=== PATIENT | male | born 1995 | race Caucasian/White ===

== ENCOUNTER 2017-06-19 15:35 | Emergency (ER) | payer MEDICAID ==
--- NOTE | 2017-06-19 17:26 | ER Document Report ---
ED General - General Chief Complaint: Wrist Pain Stated Complaint: POSSIBLE ANXIETY/HAND PAIN Time Seen by Provider: 06/19/17 17:07 Mode of Arrival: Ambulatory Information source: Patient Notes: 22-year-old male presents to ED for pain in both wrists for the last 6 months that is getting progressively worse over time. He states he injured his wrist previously but never went and got evaluated. Now the pain is getting worse. He is also come in today for several episodes of stomach cramping chest pain with difficulty breathing hard to take along deep breath and happens usually under stress. He also is thirsty all the time with frequent urination and dark urine the last 2-3 weeks. States he drinks water and Gatorade all day as he is out in the sun. States he has had several episodes where his come home and been very sleepy and not able to get up and move around and his mother has a history of diabetes and she had similar symptoms before she was diagnosed. TRAVEL OUTSIDE OF THE [place] IN LAST 30 DAYS: No - HPI Onset: Other - Wrist pain for 6 months stomach cramping chest pain and shortness of breath and distress for 2-3 days 3 episodes Onset/Duration: Intermittent Quality of pain: Cramping - Cramping in his abdomen 3 times over the last 2-3 days along with the chest pressure, Pressure - States his chest feels tight and pressure 3 times over the last 2-3 days none at this moment, Sharp - Wrist, Throbbing - Wrist Associated symptoms: Chest pain - 3 times over the last 2-3 days none at this moment, Other - Abdominal cramping shortness of breath 3 times over the last 2- 3 days dark urine increased thirst for the last 2-3 weeks Exacerbated by: Other - Stress causes his chest pain stomach pain and shortness of breath Relieved by: Denies Similar symptoms previously: Yes Recently seen / treated by doctor: No Past Medical History - General Information source: Patient - Social History Smoking Status: Current Every Day Smoker Cigarette use (# per day): Yes - 1/2-1 pack per day Chew tobacco use (# tins/day): No Smoking Education Provided: Yes - Less than 2 minutes Frequency of alcohol use: Rare Drug Abuse: Marijuana 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 Lives with: Family Family History: DM Patient has suicidal ideation: No Patient has homicidal ideation: No - Past Medical History Cardiac Medical History: Reports: None Pulmonary Medical History: Reports: None EENT Medical History: Reports: None Neurological Medical History: Reports: None Endocrine Medical History: Reports: None Renal/ Medical History: Reports: None Malignancy Medical History: Reports None GI Medical History: Reports: None Musculoskeltal Medical History: Reports Hx Musculoskeletal Trauma Skin Medical History: Reports None Psychiatric Medical History: Reports: Hx Attention Deficit Hyperactivity Disorder Traumatic Medical History: Reports: None Infectious Medical History: Reports: None Surgical Hx: Negative - Immunizations Hx Diphtheria, Pertussis, Tetanus Vaccination: Yes Review of Systems - Review of Systems Constitutional: No symptoms reported EENT: No symptoms reported Cardiovascular: Chest pain - 3 times over the last 2-3 days none at this moment Respiratory: Short of breath - 3 times over the last 2-3 days Gastrointestinal: Abdominal pain - 3 times over the last 2-3 days Genitourinary: Frequency, Other - dark. denies: Burning Male Genitourinary: No symptoms reported Musculoskeletal: Other - bilateral hand pain Skin: No symptoms reported Hematologic/Lymphatic: No symptoms reported Neurological/Psychological: No symptoms reported -: Yes All other systems reviewed and negative Physical Exam - Vital signs Vitals: Temp Pulse Resp BP Pulse Ox 97.8 F 70 18 141/65 H 98 06/19/17 15:59 06/19/17 15:59 06/19/17 15:59 06/19/17 15:59 06/19/17 15:59 Interpretation: Normal - General General appearance: Appears well, Alert - HEENT Head: Normocephalic, Atraumatic Eyes: Normal Pupils: PERRL - Respiratory Respiratory status: No respiratory distress Chest status: Nontender Breath sounds: Normal Chest palpation: Normal - Cardiovascular Rhythm: Regular Heart sounds: Normal auscultation Murmur: No - Abdominal Inspection: Normal Distension: No distension Bowel sounds: Normal Tenderness: Nontender Organomegaly: No organomegaly - Back Back: Normal, Nontender - Extremities General upper extremity: Normal inspection, Normal color, Normal ROM, Normal temperature General lower extremity: Normal inspection, Nontender, Normal color, Normal ROM , Normal temperature, Normal weight bearing. No: Luiz's sign - Neurological Neuro grossly intact: Yes Cognition: Normal Orientation: AAOx4 Eva Coma Scale Eye Opening: Spontaneous Bard Coma Scale Verbal: Oriented Eva Coma Scale Motor: Obeys Commands Eva Coma Scale Total: 15 Speech: Normal Motor strength normal: LUE, RUE, LLE, RLE Sensory: Normal - Psychological Associated symptoms: Normal affect, Normal mood - Skin Skin Temperature: Warm Skin Moisture: Dry Skin Color: Normal Course - Re-evaluation Re-evalutation: 06/19/17 18:59 Discussed both x-rays with and labs with patient. Will put cockup splints on both wrists due to his wrist pain. Patient will follow up with mental health and orthopedics for his anxiety and wrist pain. - Vital Signs Vital signs: Temp Pulse Resp BP Pulse Ox 98.8 F 60 16 132/80 H 99 06/19/17 19:15 06/19/17 19:15 06/19/17 19:15 06/19/17 19:15 06/19/17 19:15 - Laboratory Result Diagrams: 06/19/17 17:31 06/19/17 17:31 Laboratory results interpreted by me: 06/19/17 06/19/17 17:31 17:50 Glucose 71 L Urine Protein 30 H Urine Urobilinogen 4.0 H - Diagnostic Test Radiology reviewed: Image reviewed, Reports reviewed Procedures - Immobilization Left Wrist Immobilizer type: Cock-up Performed by: PCT Post-Proc Neuro Vasc Exam: Normal Alignment checked and good: Yes Right Wrist Immobilizer type: Cock-up Performed by: PCT Post-Proc Neuro Vasc Exam: Normal Alignment checked and good: Yes Discharge - Discharge Clinical Impression: Chronic pain of both wrists, Anxiety Condition: Stable Disposition: HOME, SELF-CARE Additional Instructions: You were seen today for several episodes of chest pain with abdominal cramping over the last 3 days. You stated when you have these episodes you have very short of breath and your chest feels tight. He states these episodes happen when you are under a lot of stress. And that you have been under a lot of stress lately he will need to follow-up with one of the mental offices on the list you received to help you with this discomfort. Anxiety The physician feels that some of your health problems are being caused by anxiety. Anxiety affects your health in many ways. Anxiety alone can cause palpitations, sweats, chest pains, abdominal pains, shortness of breath, and headaches. It contributes to ulcer disease, high blood pressure, irritable bowel syndrome, and has been shown to cause flare-ups of many other diseases. Anxiety is not a simple disorder to treat. If the anxiety is due to recent life stresses, you may simply need time to "work through" the changes. If the anxiety is due to an underlying unhappiness with yourself or due to psychiatric disturbance, professional help will be needed. Your physician can refer you for further help if needed. Anti-anxiety medication is occasionally given if the stress is acute or if you are having trouble sleeping. Chronic or frequent use of these medications is not a good idea because the body becomes reliant on it, preventing you from dealing with life's normal stresses. You will need to follow-up with 1 of the mental health office is that I gave you for your anxiety. He was seen today for chronic pain to both wrist. He states that that started about 6 months ago but is getting progressively worse. Your x-rays were negative. You will need to follow-up with orthopedics for further evaluation of your wrist pain. I have given you cockup splints which usually will help you to rest your wrist until he can get evaluated by orthopedics. Ibuprofen should help your pain as well as the cock-up splint until you can follow-up with orthopedics. FOLLOW-UP CARE: If you have been referred to a physician for follow-up care, call the physician s office for an appointment as you were instructed or within the next two days. If you experience worsening or a significant change in your symptoms, notify the physician immediately or return to the Emergency Department at any time for re-evaluation. Forms: Elevated Blood Pressure, Smoking Cessation Education, Return to Work Referrals: GALE PALACIOS MD [ACTIVE STAFF] - Follow up as needed
[2017-06-19 17:41] LABS: ABSOLUTE EOSINOPHILS # (AUTO) 0.4 10^3/uL (0.0-0.6); ABSOLUTE LYMPHOCYTES (AUTO) 2.2 10^3/uL (0.5-4.7); ABSOLUTE MONOCYTES (AUTO) 0.6 10^3/uL (0.1-1.4); ABSOLUTE NEUT (AUTO) 6.3 10^3/uL (1.7-8.2); BASOPHILS % (AUTO) 0.1 % (0-2); EOSINOPHILS % (AUTO) 3.8 % (0-6); HEMATOCRIT 46.5 % (37.9-51.0); HEMOGLOBIN 16.4 g/dL (13.5-17.0); HGB HCT DIFFERENCE 2.7; LYMPHOCYTES % (AUTO) 23.4 % (13-45); MEAN CORPUSCULAR HEMOGLOBIN 32.1 pg (27.0-33.4); MEAN CORPUSCULAR HGB CONC 35.3 g/dL (32.0-36.0); MEAN CORPUSCULAR VOLUME 91 fl (80-97); MONOCYTES % (AUTO) 5.9 % (3-13); RED BLOOD COUNT 5.11 10^6/uL (4.35-5.55); RED CELL DISTRIBUTION WIDTH 12.4 % (11.5-14.0); SEGMENTED NEUTROPHILS % (AUTO) 66.8 % (42-78); WHITE BLOOD COUNT 9.5 10^3/uL (4.0-10.5)
[2017-06-19 17:59] LABS: ALANINE AMINOTRANSFERASE 61 U/L (21-72); ALBUMIN 4.4 g/dL (3.5-5.0); ALKALINE PHOSPHATASE 76 U/L (38-126); ANION GAP 9 (5-19); ASPARTATE AMINO TRANSFERASE 34 U/L (17-59); BILIRUBIN,DIRECT 0.3 mg/dL (0.0-0.4); BILIRUBIN,TOTAL 0.6 mg/dL (0.2-1.3); BLOOD UREA NITROGEN 12 mg/dL (7-20); CALCIUM 9.7 mg/dL (8.4-10.2); CARBON DIOXIDE 29 mmol/L (22-30); CHLORIDE 104 mmol/L (98-107); CREATININE RESULT 0.86 mg/dL (0.52-1.25); GLUCOSE 71 mg/dL (75-110); LIPASE 91.5 U/L (23-300); POTASSIUM 4.1 mmol/L (3.6-5.0); SODIUM 141.5 mmol/L (137-145)
[2017-06-19 18:21] LABS: AMORPHOUS SEDIMENT,URINE TRACE /HPF; APPEARANCE,URINE CLOUDY; BILIRUBIN,URINE NEGATIVE (NEGATIVE); GLUCOSE, URINE NEGATIVE (NEGATIVE); KETONES,URINE NEGATIVE (NEGATIVE); LEUKOCYTE ESTERASE,URINE NEGATIVE (NEGATIVE); NITRITE,URINE NEGATIVE (NEGATIVE); PROTEIN,URINE 30 mg/dL (NEGATIVE); URINE SPECIFIC GRAVITY 1.021
--- NOTE | 2017-06-19 18:26 | RADIOLOGY REPORT (SQ) ---
EXAM DESCRIPTION: WRIST BILATERAL 3 VIEWS COMPLETED DATE/TIME: 06/19/2017 5:48 pm REASON FOR STUDY: increasing pain to both wrist COMPARISON: None. NUMBER OF VIEWS: Three views. TECHNIQUE: AP, lateral, and oblique radiographic images acquired of the right and left wrist. LIMITATIONS: None. FINDINGS: MINERALIZATION: Normal. BONES: No acute fracture or dislocation. No worrisome bone lesions. Normal alignment. SOFT TISSUES: No soft tissue swelling. No foreign body. OTHER: No other significant finding. IMPRESSION: No significant abnormalities involving the wrists. TECHNICAL DOCUMENTATION: JOB ID: [id number] [employer]- All Rights Reserved
[2017-06-19 19:18] VITALS: BP 132/80
== END 2017-06-19 19:20 | disposition home or self-care (01) ==
LOC: ER 15:35
DX: M25.532 Pain in left wrist (principal); M25.531 Pain in right wrist; G89.29 Other chronic pain; F41.9 Anxiety disorder, unspecified; R10.9 Unspecified abdominal pain; R07.9 Chest pain, unspecified; F17.210 Nicotine dependence, cigarettes, uncomplicated
CPT/HCPCS: 99284; 36415; 82550; 83690; 85025; 80053; 81001; 73110; L3908 ×2

== ENCOUNTER 2019-04-15 05:01 | Emergency (ER) | payer SELFPAY ==
[2019-04-15] MEDS ORDERED: LIDOCAINE 1%/EPINEPHRINE INJ 20 ML VIAL INJ ONE (08:44)
[2019-04-15] MEDS ORDERED: HYDROCODONE/ACETAMINOPHEN 5-325 MG (6 TAB/ER DISP) PO PRN (09:29)
[2019-04-15] MEDS ORDERED: SULFAMETHOXAZOLE/TRIMETHOPRIM 800-160 MG TABLET PO ONE (09:29)
[2019-04-15] MEDS ORDERED: CEPHALEXIN 500 MG CAPSULE PO ONE (09:29)
--- NOTE | 2019-04-15 09:35 | ER Document Report ---
ED Skin Rash/Insect Bite/Abscs - General Chief Complaint: Abscess Stated Complaint: POSS INSECT BITE Time Seen by Provider: 04/15/19 08:08 Notes: Patient is a 24-year-old male presents to the emergency department with a chief complaint of right arm abscess. Patient states that 3 days ago he noticed a small pimple to the right mid forearm. Patient states that since then it has become extremely tender to touch and the redness has increased. Patient denies fever or chills. Patient states he did have a left elbow abscess in the past and was told there was an infection but is unsure if he had MRSA or staph. Patient denies nausea vomiting or diarrhea patient denies numbness or tingling to the hand distal to the injury. TRAVEL OUTSIDE OF THE [place] IN LAST 30 DAYS: No - Related Data Allergies/Adverse Reactions: No Known Allergies Allergy (Verified 04/15/19 05:05) Past Medical History - General Information source: Patient - Social History Smoking Status: Never Smoker Chew tobacco use (# tins/day): No Frequency of alcohol use: None Drug Abuse: None Lives with: Family Family History: DM Patient has suicidal ideation: No Patient has homicidal ideation: No - Past Medical History Cardiac Medical History: Reports: None Pulmonary Medical History: Reports: None EENT Medical History: Reports: None Neurological Medical History: Reports: None Endocrine Medical History: Reports: None Renal/ Medical History: Reports: None. Denies: Hx Peritoneal Dialysis Malignancy Medical History: Reports None GI Medical History: Reports: None Musculoskeletal Medical History: Reports Hx Musculoskeletal Trauma Skin Medical History: Reports None Psychiatric Medical History: Reports: Hx Attention Deficit Hyperactivity Disorder Traumatic Medical History: Reports: None Infectious Medical History: Reports: None Surgical Hx: Negative - Immunizations Hx Diphtheria, Pertussis, Tetanus Vaccination: Yes Review of Systems - Review of Systems Constitutional: No symptoms reported EENT: No symptoms reported Cardiovascular: No symptoms reported Respiratory: No symptoms reported Gastrointestinal: No symptoms reported Genitourinary: No symptoms reported Male Genitourinary: No symptoms reported Musculoskeletal: No symptoms reported Skin: See HPI Hematologic/Lymphatic: No symptoms reported Neurological/Psychological: No symptoms reported Physical Exam - Vital signs Vitals: Temp Pulse Resp BP Pulse Ox 98.6 F 92 18 151/76 H 100 04/15/19 05:06 04/15/19 05:06 04/15/19 05:06 04/15/19 05:06 04/15/19 05:06 Interpretation: Hypertensive - Notes Notes: GENERAL: Well-appearing, well-nourished and in no acute distress. HEAD: Atraumatic, normocephalic. EYES: Pupils equal round and reactive to light, extraocular movements intact, sclera anicteric, conjunctiva are normal. ENT: TMs normal, nares patent, oropharynx clear without exudates. Moist mucous membranes. NECK: Normal range of motion, supple without lymphadenopathy or JVD. LUNGS: Breath sounds clear to auscultation bilaterally and equal. No wheezes rales or rhonchi. HEART: Regular rate and rhythm without murmurs, rubs or gallops. ABDOMEN: Soft, nontender, normoactive bowel sounds. No guarding, no rebound. No masses appreciated. BACK: No cervical, thoracic, lumbar midline tenderness. No saddle anesthesia, normal distal neurovascular exam. GENITOURINARY: Deferred. EXTREMITIES: Normal range of motion, no pitting or edema. No clubbing or cyanosis. NEUROLOGICAL: Cranial nerves II through XII grossly intact. Normal speech, normal gait. PSYCH: Normal mood, normal affect. SKIN: Warm, Dry, 3 x 2 cm area to the right mid forearm that is indurated and firm. If there is a surrounding cellulitis noted to the area. There is no drainage. Center of the wound has a white head. Patient is able to make a fist with his right hand, the okay sign, thumbs up without difficulty. Patient does have a strong Course - Re-evaluation Re-evalutation: 04/15/19 Patient is abscess to the right forearm was incised and drained. I did leave the wound open for drainage of the next few days. We did provide the patient with additional gauze at home. I will place the patient on Keflex and Bactrim to cover MRSA and staph. I did explain to the patient to return if the symptoms worsen despite being on antibiotics. Will provide the patient with his first dose of antibiotics while emergency department. Mother at the bedside during this discussion. - Vital Signs Vital signs: Temp Pulse Resp BP Pulse Ox 98.4 F 76 18 126/74 H 98 04/15/19 09:47 04/15/19 09:47 04/15/19 09:47 04/15/19 09:47 04/15/19 09:47 Procedures - Incision and Drainage Right Volar Arm Type: Simple Anesthetic type: 1% Lidocaine w/epi mL's of anesthetic: 7 Blade size: 11 I&D procedure: Betadine prep applied, Shurclens applied Incision Method: Incision made by scalpel Amount/type of drainage: Small amount of purulent drainage and blood removed from the abscess. Notes: 04/15/19 A 1.5 cm incision was made with an 11 blade scalpel to the middle of the area of induration. There was a small amount of purulent drainage and blood that was removed from the wound. I did investigate at the wound and did not find any tunneling. I did irrigate the wound with saline. Patient did tolerate well. Adult Front & Back picture: 1 - Abscess with surrounding cellulitis Discharge - Discharge Clinical Impression: Abscess Condition: Stable Disposition: HOME, SELF-CARE Additional Instructions: Today you were seen in the emergency department for an abscess to the right arm. The abscess was cut and drained. The incision is left open and will continue to drain over the next few days as this is normal and is expected. Incision will eventually close on its own. You will be placed on 2 antibiotics Keflex and Bactrim. These antibiotics will cover staph and MRSA. Please return to the emergency department for worsening of abscess and an increase of swelling that streaks up the arm. Please return for fever, chills or any other concerning signs or symptoms. Being prescribed a few [place] tablets at discharge. [place] is a narcotic that includes hydrocodone and Tylenol. Please do not drive or operate heavy machinery while patient as it can make you drowsy and impaired. Abscess You have an abscess (boil). This a pus-forming infection, usually due to staph. Some boils may be left to drain on their own, but most require lancing. From the time the tender lump first appears, it may be three or four days before the abscess is ready to emerita. Local heat and rest help at this stage of treatment. An antibiotic may prevent spread of the infection. Once the abscess is opened, packing may be placed into it. This is done so pus is not sealed inside by premature closure of the cavity. The packing will be removed at your follow-up visit or you may be advised to remove it yourself at home. Sometimes this packing must be replaced a few times during healing. The wound will heal with surprisingly little scar. Depending on the size and location of an abscess, healing can take one to four weeks. You may shower and wash the area around the incision site two or three times a day. Antibiotics may be prescribed, but are usually not necessary after an abscess has been drained. If you develop fever, chilling, worsening pain, or increasing swelling in the area, call the doctor or return immediately. Prescriptions: Cephalexin Monohydrate [Keflex 500 mg Capsule] 500 mg PO Q6H 7 Days #28 capsule Sulfamethoxazole/Trimethoprim [Bactrim Ds Tablet] 1 each PO BID 7 Days #14 tablet Forms: Return to Work
[2019-04-15 09:51] VITALS: BP 126/74
== END 2019-04-15 09:55 | disposition home or self-care (01) ==
LOC: ER 05:01
DX: L02.413 Cutaneous abscess of right upper limb (principal); L03.113 Cellulitis of right upper limb
CPT/HCPCS: 99283; 10060; J3490

== ENCOUNTER 2019-07-24 10:14 | Emergency (ER) | payer SELFPAY ==
[2019-07-24] MEDS ORDERED: OXYCODONE-ACETAMINOPHEN 5-325 MG TABLET PO ONE (11:27)
--- NOTE | 2019-07-24 11:29 | ER Document Report ---
ED Medical Screen (RME) - General Chief Complaint: Abscess Stated Complaint: ABSCESS Time Seen by Provider: 07/24/19 11:27 Information source: Patient Notes: Patient presents with abscess to sacrum for the past 3 days. Patient does have a history of abscess in the past, although not in this location previously. Patient denies any fever. I have greeted and performed a rapid initial assessment of this patient. A c omprehensive ED assessment and evaluation of the patient, analysis of test results and completion of the medical decision making process will be conducted by additional ED providers. TRAVEL OUTSIDE OF THE [place] IN LAST 30 DAYS: No - Related Data Allergies/Adverse Reactions: No Known Allergies Allergy (Verified 07/24/19 11:02) Past Medical History - Social History Drug Abuse: Marijuana, Prescription drugs Renal/ Medical History: Denies: Hx Peritoneal Dialysis Musculoskeltal Medical History: Reports Hx Musculoskeletal Trauma Psychiatric Medical History: Reports: Hx Attention Deficit Hyperactivity Disorder - Immunizations Hx Diphtheria, Pertussis, Tetanus Vaccination: Yes Physical Exam - Vital signs Vitals: Temp Pulse Resp BP Pulse Ox 98.2 F 128 H 16 128/84 H 99 07/24/19 10:21 07/24/19 10:07/24/19 10:07/24/19 10:07/24/19 10:21 - General Notes: Tenderness and erythema to superior aspect of gluteal cleft with area of fluctuance. Course - Vital Signs Vital signs: Temp Pulse Resp BP Pulse Ox 98.2 F 128 H 16 128/84 H 99 07/24/19 10:07/24/19 10:07/24/19 10:07/24/19 10:07/24/19 10:21
--- NOTE | 2019-07-24 12:47 | ER Document Report ---
ED Skin Rash/Insect Bite/Abscs - General Chief Complaint: Abscess Stated Complaint: ABSCESS Time Seen by Provider: 07/24/19 11:27 Mode of Arrival: Ambulatory Information source: Patient TRAVEL OUTSIDE OF THE [place] IN LAST 30 DAYS: No - HPI Patient complains to provider of: Tender/swollen area - pt. with c/o tender, swollen area in lumbar area for the past 2-3 days. He says it has gotten somewhat more painful in the past day. He has not tried warm coompresses. - Related Data Allergies/Adverse Reactions: No Known Allergies Allergy (Verified 07/24/19 11:02) Past Medical History - Social History Smoking Status: Current Every Day Smoker Drug Abuse: Marijuana, Prescription drugs Family History: DM Patient has suicidal ideation: No Patient has homicidal ideation: No Renal/ Medical History: Denies: Hx Peritoneal Dialysis Musculoskeletal Medical History: Reports Hx Musculoskeletal Trauma Psychiatric Medical History: Reports: Hx Attention Deficit Hyperactivity Disorder Past Surgical History: Reports: Hx Orthopedic Surgery - left elbow - Immunizations Hx Diphtheria, Pertussis, Tetanus Vaccination: Yes Review of Systems - Review of Systems Constitutional: No symptoms reported EENT: No symptoms reported Cardiovascular: No symptoms reported Respiratory: No symptoms reported Gastrointestinal: No symptoms reported Skin: See HPI, Lesions Neurological/Psychological: No symptoms reported -: Yes All other systems reviewed and negative Physical Exam - Vital signs Vitals: Temp Pulse Resp BP Pulse Ox 98.2 F 128 H 16 128/84 H 99 07/24/19 10:21 07/24/19 10:21 07/24/19 10:21 07/24/19 10:21 07/24/19 10:21 - General General appearance: Appears well In distress: None - Respiratory Respiratory status: No respiratory distress Breath sounds: Normal - Cardiovascular Rhythm: Regular Heart sounds: Normal auscultation Murmur: No - Skin Skin irregularity: Abscess - there is a 2 by 2 cm tender,slightly erythemetous area at the top of the buttocks crease. It is not fluctuent or indurated. Course - Re-evaluation Re-evalutation: 07/24/19 12:45 I have spoken to this pt. that we can I and D this area today. 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 I told him to do warm compresses several tiimes a day and will prescribe abx and pain meds for him in the meantime. I have urged him to RTED if these measures are not successful. - Vital Signs Vital signs: Temp Pulse Resp BP Pulse Ox 98.2 F 128 H 16 128/84 H 99 07/24/19 10:21 07/24/19 10:21 07/24/19 10:21 07/24/19 10:21 07/24/19 10:21 Discharge - Discharge Clinical Impression: Abscess Condition: Stable Disposition: HOME, SELF-CARE Instructions: Abscess (OM), Trimethoprim-Sulfa (OM) Additional Instructions: rest, warm compresses , take meds as prescribed, return if worse Prescriptions: Sulfamethoxazole/Trimethoprim [Bactrim Ds Tablet] 1 each PO BID #10 tablet Tramadol HCl [Ultram] 50 mg PO BID #14 tablet Referrals: THONY HARVEY MD [[facility]] - Follow up as needed
[2019-07-24 13:08] VITALS: BP 127/55
== END 2019-07-24 13:08 | disposition home or self-care (01) ==
LOC: ER 10:14
DX: L02.31 Cutaneous abscess of buttock (principal); F17.200 Nicotine dependence, unspecified, uncomplicated; F12.10 Cannabis abuse, uncomplicated
CPT/HCPCS: 99282

== ENCOUNTER 2019-07-25 22:13 | Emergency (ER) | payer SELFPAY ==
[2019-07-25] MEDS ORDERED: LIDOCAINE 1% INJ-PF (10 MG/ML) 30 ML SDV INJ ONE (23:35)
[2019-07-26] MEDS ORDERED: OXYCODONE-ACETAMINOPHEN 5-325 MG TABLET PO ONE (00:09)
--- NOTE | 2019-07-26 01:34 | ER Document Report ---
ED Skin Rash/Insect Bite/Abscs - General Chief Complaint: Abscess Stated Complaint: BUMP ON BACK Time Seen by Provider: 07/25/19 23:35 Notes: Patient is a 24-year-old male presents to the emergency department with a pilonidal abscess. Patient states he was at this facility yesterday for same. States he did not want incision and drainage at that time. States he wants to try antibiotics. States the pain has increased, the redness has increased, the swelling has increased which is why he represents to the emergency room. Patient's denying any history of MRSA or fevers. Patient was given a prescription for Ultram and Bactrim yesterday. States the Bactrim was only a 5-day supply. Patient denies any allergies TRAVEL OUTSIDE OF THE [place] IN LAST 30 DAYS: No - Related Data Allergies/Adverse Reactions: No Known Allergies Allergy (Verified 07/24/19 11:02) Past Medical History - General Information source: Patient - Social History Smoking Status: Current Every Day Smoker Family History: DM Patient has suicidal ideation: No Patient has homicidal ideation: No Renal/ Medical History: Denies: Hx Peritoneal Dialysis Musculoskeletal Medical History: Reports Hx Musculoskeletal Trauma Psychiatric Medical History: Reports: Hx Attention Deficit Hyperactivity Disorder Past Surgical History: Reports: Hx Orthopedic Surgery - left elbow - Immunizations Hx Diphtheria, Pertussis, Tetanus Vaccination: Yes Review of Systems - Review of Systems Constitutional: denies: Fever EENT: No symptoms reported Cardiovascular: No symptoms reported Respiratory: No symptoms reported Gastrointestinal: No symptoms reported Genitourinary: No symptoms reported Male Genitourinary: No symptoms reported Musculoskeletal: See HPI Skin: See HPI Hematologic/Lymphatic: No symptoms reported Neurological/Psychological: No symptoms reported Physical Exam - Vital signs Vitals: Temp Pulse Resp BP Pulse Ox 99.2 F 125 H 19 148/91 H 97 07/25/19 22:20 07/25/19 22:20 07/25/19 22:20 07/25/19 22:20 07/25/19 22:20 - Notes Notes: GENERAL: Alert, interacts well. No acute distress. HEAD: Normocephalic, atraumatic. EYES: Pupils equal, round, and reactive to light. Extraocular movements intact. ENT: Oral mucosa moist, tongue midline. NECK: Full range of motion. Supple. Trachea midline. LUNGS: Clear to auscultation bilaterally, no wheezes, rales, or rhonchi. No respiratory distress. HEART: Regular rate and rhythm. No murmur ABDOMEN: Soft, non-tender. Non-distended. Bowel sounds present in all 4 quadrants. EXTREMITIES: Moves all 4 extremities spontaneously. No edema, normal radial and dorsalis pedis pulses bilaterally. No cyanosis. BACK: no cervical, thoracic, lumbar midline tenderness. No saddle anesthesia, normal distal neurovascular exam. NEUROLOGICAL: Alert and oriented x3. Normal speech. cranial nerves II through XII grossly intact PSYCH: Normal affect, normal mood. SKIN: Warm, dry, normal turgor. 4 centimeter by 4 cm fluctuant area in top cleft of the buttocks, 6 cm x 6 cm area of cellulitic tissue noted surrounding. Course - Re-evaluation Re-evalutation: 07/26/19 01:31 Incision and drain performed, patient tolerated well. Will extend patient's Bactrim dosing for 7 days total. We will also add Keflex for proper strep and staph coverage. At this time will discharge with return precautions and follow-up recommendations. Verbal discharge instructions given a the bedside and opportunity for questions given. Medication warnings reviewed. Patient is in agreement with this plan and has verbalized understanding of return precautions and the need for primary care follow-up in the next 24-72 hours. This medical record was dictated with voice recognizing software. There may be grammatical, syntax errors that are unintended. 07/26/19 01:36 - Vital Signs Vital signs: Temp Pulse Resp BP Pulse Ox 99.2 F 125 H 19 148/91 H 97 07/25/19 22:20 07/25/19 22:20 07/25/19 22:20 07/25/19 22:20 07/25/19 22:20 Procedures - Incision and Drainage Pilonidal cyst Type: Simple Anesthetic type: 1% Lidocaine mL's of anesthetic: 5 Blade size: 11 I&D procedure: Betadine prep applied, Sterile dressing applied Incision Method: Incision made by scalpel Amount/type of drainage: Copious, purulent Notes: Irrigated with 60 cc of normal saline solution. Discharge - Discharge Clinical Impression: Pilonidal cyst with abscess Condition: Stable Disposition: HOME, SELF-CARE Instructions: Abscess ([facility]), Cephalexin ([facility]), Oral Narcotic Medication ([facility]), Post Incision and Drainage, Trimethoprim-Sulfa ([facility]) Additional Instructions: As we discussed you have been seen and treated in the emergency department for pilonidal abscess. It has been drained. I would like you to use warm water and Epson salt soaks at least twice a day for the next couple of days. Please also make sure you are taking the antibiotics I have prescribed. Please only use pain medication as needed. Please follow-up with your primary care provider in the next 24 to 48 hours. Return to the emergency room for any concerns. As we discussed I am giving you phone numbers for a surgeon in our area. Should this recur you may need to follow-up with surgery. Prescriptions: Sulfamethoxazole/Trimethoprim [Bactrim Ds Tablet] 1 each PO BID 3 Days tablet Cephalexin Monohydrate [Keflex 500 mg Capsule] 500 mg PO BID 7 Days #14 capsule Hydrocodone/Acetaminophen [[place] 10-325 mg Tablet] 1 tab PO Q6 PRN #8 tablet PRN Reason: Referrals: LOI ARBOLEDA MD [ACTIVE STAFF] - Follow up as needed
[2019-07-26 01:50] VITALS: BP 142/89
== END 2019-07-26 01:52 | disposition home or self-care (01) ==
LOC: ER 22:13
PROC: 0H98XZZ Drainage of Buttock Skin, External Approach (ICD-10-PCS; principal; 2019-07-25)
DX: L05.01 Pilonidal cyst with abscess (principal); Z79.899 Other long term (current) drug therapy; F17.200 Nicotine dependence, unspecified, uncomplicated
CPT/HCPCS: 10080; J3490